=== PATIENT | female | born 1980 | race Caucasian/White ===

== ENCOUNTER 2018-05-13 20:30 | Outpatient (CLI) | payer BC | END 2018-05-13 20:31 | disposition home or self-care (01) | LOC: SLEEPLAB 20:30 | PROVIDERS: ATTEND Family Medicine | DX: G47.33 Obstructive sleep apnea (adult) (pediatric) (principal); G47.00 Insomnia, unspecified; R53.83 Other fatigue; I10 Essential (primary) hypertension | CPT/HCPCS: 95810 ==

== ENCOUNTER 2021-01-01 07:10 | Outpatient (CLI) | payer BC ==
[2021-01-01 10:06] LABS: #Eosinphils 0.1 10x3/uL (0.0-0.5); #Monocytes 0.5 10x3/uL (0.0-1.1); #Neutrophils 2.8 10x3/uL (1.5-8.4); %Basophils 0.4 % (0.0-2.0); %Eosinophils 1.4 % (0.0-6.0); %Lymphocytes 40.4 % (18.0-47.0); %Monocytes 8.4 % (0.0-10.0); %Neutrophils 49.2 % (40.0-75.0); Hemoglobin 13.1 g/dL (12.0-15.5); Mean Corpuscular HGB CONC 33.7 g/dL (32.0-36.0); Mean Corpuscular Hemoglobin 32.2 pg (27.0-33.0); Mean Corpuscular Volume 95.6 fl (81.6-98.3); Mean Platelet Volume 10.8 fl (7.4-10.4); Platelet Count 279 10x3/uL (150-450); Red Blood Cell (RBC) Count 4.07 10x6/uL (3.90-5.03); White Blood Cell (WBC) Count 5.6 10x3/uL (3.5-10.5)
[2021-01-01 10:34] LABS: BHCG - Serum Negative (NEGATIVE); Pregs Control Background? CLEAR/WHITE (CLR/WHITE); Pregs Control Bar Appear? YES (CONTROL BAR)
[2021-01-01 17:47] LABS: SARS-CoV-2 PCR by NAA Not Detected (NotDetected)
== END 2021-01-01 07:11 | disposition home or self-care (01) ==
LOC: LABBT 07:10
PROVIDERS: ATTEND Surgery
DX: Z01.812 Encounter for preprocedural laboratory examination (principal); D17.9 Benign lipomatous neoplasm, unspecified; Z20.822 Contact with and (suspected) exposure to COVID-19
CPT/HCPCS: 84703; 85025; U0003; U0005

== ENCOUNTER 2021-01-03 07:32 | Day surgery (SDC) | payer BC ==
[2021-01-02 11:24] VITALS: BMI 29.8
[2021-01-03] MEDS ORDERED: Levofloxacin 500 mg/D5W 100 ml Premix Bag ONE (07:59)
[2021-01-03] MEDS ORDERED: Lidocaine 1% w/Epinephrine 1:100K 20 ML VIAL ONE (10:14)
[2021-01-03] MEDS ORDERED: Bupivacaine 0.25% HCL 30 ML VIAL ONE (10:14)
[2021-01-03] MEDS ORDERED: SUGAMMADEX SODIUM 200 MG/2 ML VIAL ONE (10:28)
[2021-01-03] MEDS ORDERED: Fentanyl 100 MCG/2 ML VIAL ONE ×2 (10:28→13:47)
[2021-01-03] MEDS ORDERED: Lidocaine 1% PF 5 ML VIAL ONE ×2 (10:32)
[2021-01-03] MEDS ORDERED: Ketorolac Tromethamine 30 MG/ML VIAL ONE (10:32)
[2021-01-03] MEDS ORDERED: Dexamethasone 20 MG/5 ML VIAL ONE (10:32)
[2021-01-03] MEDS ORDERED: Succinylcholine 200 MG/10 ml SYRINGE FS ONE (10:32)
[2021-01-03] MEDS ORDERED: PROPOFOL 200 MG/20 ML VIAL ONE (10:32)
[2021-01-03] MEDS ORDERED: Ondansetron PF 4 MG/2 ML Vial ONE (10:32)
[2021-01-03] MEDS ORDERED: Rocuronium Bromide 10 MG/ML (10ML VIAL) ONE (10:32)
[2021-01-03] MEDS ORDERED: Meperidine HCl/PF 25 MG/ML VIAL ONE (11:57)
[2021-01-03] MEDS ORDERED: Tobramycin 0.3% Ophth Oint 3.5 GM TUBE EA EYE PRN (12:10)
== END 2021-01-03 13:00 | disposition home or self-care (01) ==
LOC: SDC 07:32
PROVIDERS: ATTEND Surgery
PROC: 0JB70ZZ Excision of Back Subcutaneous Tissue and Fascia, Open Approach (ICD-10-PCS; principal; 2021-01-03)
DX: D17.1 Benign lipomatous neoplasm of skin and subcutaneous tissue of trunk (principal); I10 Essential (primary) hypertension; E78.00 Pure hypercholesterolemia, unspecified; R22.41 Localized swelling, mass and lump, right lower limb; Z87.891 Personal history of nicotine dependence; Z79.899 Other long term (current) drug therapy; Z88.0 Allergy status to penicillin
CPT/HCPCS: 88304; J1100; J1885; J1956; J2175; J2405; J2704; J3010; S0020

== ENCOUNTER 2022-07-03 11:26 | Outpatient (CLI) | payer BC | END 2022-07-03 11:27 | disposition home or self-care (01) | LOC: BICRAD 11:26 | PROVIDERS: ATTEND Family Medicine | DX: M47.26 Other spondylosis with radiculopathy, lumbar region (principal) | CPT/HCPCS: 72100 ==

== ENCOUNTER 2022-09-30 14:36 | Outpatient (CLI) | payer BC | END 2022-09-30 14:37 | disposition home or self-care (01) | LOC: SCSRAD 14:36 | PROVIDERS: ATTEND Physician Assistant | DX: S69.91XA Unspecified injury of right wrist, hand and finger(s), initial encounter (principal) ==

== ENCOUNTER 2023-03-31 12:18 | Outpatient (CLI) | payer BC | END 2023-03-31 12:19 | disposition home or self-care (01) | LOC: BICRAD 12:18 | PROVIDERS: ATTEND Family Medicine | DX: R20.2 Paresthesia of skin (principal) ==